=== PATIENT | female | born 2005 | race African-American/Black ===

== ENCOUNTER 2024-11-09 09:23 | Outpatient (AMB) | payer OTHER, SELFPAY ==
--- NOTE | 2024-11-09 09:38 | A.OFFVIS_ITS ---
Vital Signs 11/09/24 09:39 Height 5 ft 6 in Intake Visit Reasons: 6 mnts DEVLIN Allergies sulfur dioxide Allergy (Unknown, Verified 11/09/24 09:41) Unknown Medication List - Last Reconciled 11/09/24 by Veronika Foster CNP L norgest/e.estradiol-e.estrad 0.1 mg-20 mcg (84)/10 mcg (7) 1 tab PO DAILY propranolol 20 mg PO DAILY 90 days spironolactone 50 mg PO DAILY sumatriptan succinate mg PO HPI Comments Details: 19 years old right-handed woman with migraines. Headaches were much better with propranolol. No medication side effects. Migraines were happening about once every 2 weeks. Sumatriptan as needed helps. Sleep was okay. [facility] Medical History (Updated 11/09/24 @ 09:40 by Veronika Foster CNP) Migraine without aura Review of Systems Const Denies chills, Denies daytime sleepiness, Denies difficulty sleeping, Denies fatigue, Denies fever(s), Denies frequent falls, Reports headache(s), Denies increased appetite, Denies poor appetite, Denies snoring, Denies weakness, Denies weight gain and Denies weight loss Eyes Denies loss of vision ENT Denies vertigo, Denies dizziness and Reports headache(s) Card Denies chest pain at rest, Denies chest pain with activity, Denies syncope, Denies leg edema and Denies palpitations Resp Denies snoring GI Denies constipation, Denies heartburn, Denies diarrhea and Denies nausea Denies urinary frequency, Denies urinary incontinence and Denies urinary urgency Musc Denies abnormal gait, Denies numbness and Denies tingling Skin/Breast Denies dry skin and Denies rash Neuro Denies abnormal gait, Denies vertigo, Denies dizziness, Denies syncope, Denies frequent falls, Reports headache(s), Denies lack of coordination, Denies loss of vision, Denies memory loss, Denies numbness, Denies restless legs, Denies seizure-like activity, Denies tingling, Denies paresthesias, Denies tremor(s) and Denies weakness Psych Denies anxiety, Denies depression, Denies auditory hallucinations, Denies memory loss, Denies visual hallucinations and Denies suicidal ideation Endo Denies fatigue and Denies palpitations Physical Exam Const Other: General Appearance:? normal, in no acute distress. Skin:? no rashes, no significant birthmarks. Heart:? S1, S2 normal, no murmurs. Lungs:? clear anteriorly and posteriorly. Extremities:? no edema. Psych:? alert, oriented, cognitive function intact, cooperative with exam. Neuro Other: Mental Status:?Normal attention, orientation, memory and affect.? Cranial Nerves:?Pupils are equal, round and reactive to light. External occular muscles are intact. Visual kim are full. Face is symmetrical. Facial sensations are normal. Tongue is midline. Palate elevates symmetrically. Shoulder shrugging is normal. Hearing to bedside conversation is normal. Motor Examination:?Normal muscle tone, bulk and strength,?Deep tendon reflexes are 2+,?Plantars are flexor.? Sensory Exam:?....? Coordination:?No ataxia,?no titubation.? Gait Exam: Within normal limits. Cerebellar Signs:?Wvkuyj-yk-elzh and bhhv-nz-wdut is normal.? Extrapyramidal System:?No tremor, rigidity with normal facial expressions.? Pronator Drift:?Not present.? Involuntary Movements:?No tremors seen.? Speech:?Normal.? Assessment & Plan Assessment & Plan (1) Migraine without aura: Code(s): G43.009 - Migraine without aura, not intractable, without status migrainosus Category: Medical Qualifiers: Status migrainosus presence: without status migrainosus Intractability: not intractable Qualified Code(s): G43.009 - Migraine without aura, not intractable, without status migrainosus Plan: Continue propranolol 20mg 1 tablet daily Continue sumatriptan 50mg 1 tablet as needed for headache Plan Meds tried: topiramate Medications: New propranolol 20 mg PO DAILY 90 tabs 1RF 90 days Coding Level of Care Code Est Pt Level 3 (19424) Diagnoses Migraine without aura and without status migrainosus, not intractable G43.009 Status migrainosus presence: without status migrainosus Intractability: not intractable
--- OUTSIDE RECORDS SUMMARY | 2024-11-09 09:57 | XMS_ITS | Encounter Summary ---
Author Organization [facility] Address [address] [place] [address] Phone Care Team Providers Care Epidemiologist Name Role Phone Veronika Herrera MD Primary Care Provider Encounter Details Date Type Department Care Team (Late st Contact Info) Description 12/05/2016 Conversion Encounter [facility] [place] [address] [place] [address] Social History Tobacco Use Types Packs/Day Years Used Date Smoking Tobacco: Never Assessed Comments Unknown Sex and Gender Information Value Date Recorded Sex Assigned at Not on file Legal Sex Female 4:21 PM EDT Gender Identity Not on file Sexual Orientation Not on file documented as of this encounter Plan of Treatment Not on file documented as of this encounter Visit Diagnoses Not on filedocumented in this encounter Care Teams Epidemiologist Relationship Specialty Start Date End Date Veronika Herrera MD [address] [place] [address] PCP - General 11/29/16 08/01/22 documented as of this encounter
== END 2024-11-09 09:47 | disposition home or self-care (01) ==
LOC: HO.HSM 09:23
PROVIDERS: PCP Internal Medicine; Referring Provider Internal Medicine; Visit Provider Registered Nurse
DX: G43.009 Migraine without aura, not intractable, without status migrainosus (principal)
CPT/HCPCS: 99213